=== PATIENT | female | born 1940 | race Caucasian/White ===

== ENCOUNTER 2022-09-05 08:16 | Inpatient (IN) | payer BC, MEDICAID ==
[~2022-09-05] VITALS: Ht 154.9 cm; Wt 50.8 kg
[2022-09-05 08:30] VITALS: BP_SYST 169
[2022-09-05] MEDS ORDERED: DEXAMETHASONE SOD PHOSPHATE 4 MG/ML VIAL IVP ONE (09:00)
--- NOTE | 2022-09-05 09:00 | NUR ---
PATIENT BIBA PLACE IN BED 8, C/O COUGHING AND POSITIVE COVID, PATIENT AAOX4 SPEECH CLEAR AND COHERENT, MOVE ALL EXTREMITIES, ON HEMODIALYSIS PATIENT CARE SPECIALIST, SEEN BY EDP WITH ORDER LEIGHA OUT.
[2022-09-05 09:25] LABS: BASOPHILS % (AUTO) 0.3 % (0.0-2.0); EOSINOPHILS # (AUTO) 0.2 K/uL (0.0-0.4); EOSINOPHILS % (AUTO) 1.2 % (0.0-4.0); HEMOGLOBIN 14.7 g/dL (12.0-16.0); LYMPHOCYTES # (AUTO) 1.9 K/uL (1.0-5.5); MEAN CORPUSCULAR HEMOGLOBIN 30 pg (27-31); MEAN CORPUSCULAR HGB CONC 33 % (32-36); MEAN CORPUSCULAR VOLUME 90 fL (79.0-98.0); MONOCYTES # (AUTO) 0.8 K/uL (0.0-1.0); MONOCYTES % (AUTO) 5.1 % (1.7-9.3); NEUTROPHILS # (AUTO) 13.1 K/uL (1.8-7.7); NEUTROPHILS % (AUTO) 81.4 % (40.0-70.0); PLATELET COUNT (AUTO) 297 K/uL (130-430); RED CELL DISTRIBUTION WIDTH 13.7 % (9.0-15.0); WHITE BLOOD COUNT (AUTO) 16.1 K/uL (4.8-10.8)
[2022-09-05 09:39] LABS: ANION GAP 11 (5-15); CALCIUM 9.1 mg/dL (8.4-11.0); CHLORIDE 101 mmol/L (98-107); CREATININE 0.73 mg/dL (0.55-1.30); GLUCOSE 166 mg/dL (70-99); UREA NITROGEN, BLOOD 9 mg/dL (8-21)
[2022-09-05 09:44] LABS: ALANINE AMINOTRANSFERASE 21 U/L (12-78); ALBUMIN 3.7 g/dL (3.4-4.8); ASPARTATE AMINOTRANSFERASE 18 U/L (10-37); C-REACTIVE PROTEIN QUANT 4.9 mg/dL (0-0.5); TOTAL BILIRUBIN 0.7 mg/dL (0.0-1.0)
--- NOTE | 2022-09-05 11:21 | NUR ---
covid and flu swab collected
--- NOTE | 2022-09-05 12:56 | NUR ---
ALL RESULT BACK EDP REASSESS PATIENT AND SPOKE TO FAMILY, AWAITING FOR DISPOSITION.
[2022-09-05] MEDS ORDERED: iohexoL 350 mgI/mL, 100 ML INFUS..BTL IV ONE (14:17)
--- NOTE | 2022-09-05 15:00 | NUR ---
PATIENT BACK ROM CT SCAN.
--- NOTE | 2022-09-05 16:03 | NUR ---
Admit bed requested Patient will be admitted to care of . Admitted to TELE unit. Diagnosis HYPOXIA Inpatient (Yes or No) YES Observation (Yes or No)NO Orientation concerns or request close to nursing station (Yes or No) NO Covid Status NEGATIVE On vent or bipap NO Isolation requirementsNO Needs a sitter NO From Home (Yes or if No enter name of facility) YES Requires Dialysis (Yes or No) NO Med Rec Completed (Yes of No) NO
[2022-09-05 16:24] VITALS: BP_SYST 133
--- NOTE | 2022-09-05 16:45 | NUR ---
Mani mclaughlinmichael in [facility] - 09/05/22 at 1712 by [id number] PATIENT REFUSES STRAIGHT CATH, WILL CONTINUE TO MONITOR
--- NOTE | 2022-09-05 16:48 | NUR ---
CONSULTS CALLED CALLED DR CORDON ORDERED BY DR PRINCE [phone] CUMMINS [phone]
--- NOTE | 2022-09-05 17:12 | NUR ---
patient taken to ct scan.
[2022-09-05 17:50] VITALS: BP_SYST 130
--- NOTE | 2022-09-05 18:18 | NUR ---
Patient will be admitted to care of [facility]. Admitted to TELE unit. Will go to room 134 A. Belongings list completed. Complete and up to date summary report printed. SBAR report to be given at bedside with opportunity for questions.
[2022-09-05] MEDS ORDERED: cefTRIAXone 1 GM in D5W 50 ML IV SCH (18:30)
[2022-09-05 18:47] VITALS: BP_SYST 130
[2022-09-05 19:57] VITALS: BP_SYST 138
[2022-09-05 20:00] VITALS: BP_SYST 116
[2022-09-05] MEDS: IPRATROPIUM/ALBUTEROL SULFATE 3 ML AMPUL.NEB (DUONEB) INH SCH ×2 (20:16→23:23)
[2022-09-05] MEDS ORDERED: AZITHROMYCIN 500 MG/VIAL (ZITHROMAX) IV ONE (22:10)
[2022-09-05] MEDS ORDERED: cefTRIAXone 1 GM IVPB PREMIX 50 ML IV ONE (22:10)
[2022-09-05] MEDS: AZITHROMYCIN 500 MG in NS 250 ML IV SCH (22:26)
[2022-09-06 00:56] VITALS: BP_SYST 110
[2022-09-06] MEDS: IPRATROPIUM/ALBUTEROL SULFATE 3 ML AMPUL.NEB (DUONEB) INH SCH ×6 (03:51→23:05)
[2022-09-06 04:00] VITALS: BP_SYST 104
[2022-09-06 06:41] LABS: BASOPHILS % (AUTO) 0.3 % (0.0-2.0); EOSINOPHILS # (AUTO) 0.2 K/uL (0.0-0.4); EOSINOPHILS % (AUTO) 1.3 % (0.0-4.0); HEMATOCRIT 39.3 % (36-48); HEMOGLOBIN 13.2 g/dL (12.0-16.0); LYMPHOCYTES # (AUTO) 3.1 K/uL (1.0-5.5); LYMPHOCYTES % (AUTO) 19.5 % (20.5-51.5); MEAN CORPUSCULAR HEMOGLOBIN 30 pg (27-31); MEAN CORPUSCULAR HGB CONC 34 % (32-36); MEAN CORPUSCULAR VOLUME 89 fL (79.0-98.0); MONOCYTES # (AUTO) 1.3 K/uL (0.0-1.0); MONOCYTES % (AUTO) 8.3 % (1.7-9.3); NEUTROPHILS # (AUTO) 11.1 K/uL (1.8-7.7); NEUTROPHILS % (AUTO) 70.6 % (40.0-70.0); PLATELET COUNT (AUTO) 304 K/uL (130-430); RED BLOOD CELL COUNT(AUTO) 4.43 MIL/uL (4.2-6.2); RED CELL DISTRIBUTION WIDTH 13.3 % (9.0-15.0); WHITE BLOOD COUNT (AUTO) 15.7 K/uL (4.8-10.8)
--- NOTE | 2022-09-06 07:03 | NUR ---
1900: Report received from out going nurse 1940: Pt seen in in room, VSS Stable, still awaiting MD's orders 0, administered pending ABX, respiratory at bedside . Dr Schmidt paged for cough. OK by covering doctor to give respiratory Meds 0000: pt in bed, asleep no Respiratory distress 0400 VSS, Telemetry monitoring ongoing, reading SR-ST. 0600 PT Resting in bed, REPORTS FEELING BETTER, ALREADY SPOKE TO FAMILY FROM [place]. No other distress noted
[2022-09-06 07:51] LABS: ALANINE AMINOTRANSFERASE 22 U/L (12-78); ALBUMIN 3.4 g/dL (3.4-4.8); ANION GAP 11 (5-15); ASPARTATE AMINOTRANSFERASE 14 U/L (10-37); CALCIUM 8.9 mg/dL (8.4-11.0); CHLORIDE 103 mmol/L (98-107); CREATININE 0.77 mg/dL (0.55-1.30); GLUCOSE 117 mg/dL (70-99); TOTAL BILIRUBIN 0.4 mg/dL (0.0-1.0); UREA NITROGEN, BLOOD 18 mg/dL (8-21)
[2022-09-06 09:17] VITALS: BP_SYST 119
[2022-09-06] MEDS ORDERED: DECADRON 4 MG TABLET PO SCH (11:00)
[2022-09-06] MEDS ORDERED: ENOXAPARIN SODIUM 30 MG/0.3 ML SYRINGE SUBCUT ONE (12:00)
[2022-09-06] MEDS ORDERED: METHYLPREDNISOLONE SOD SUCC 40 MG/ML VIAL IVP ONE (12:15)
[2022-09-06 12:40] VITALS: BP_SYST 119
[2022-09-06] MEDS ORDERED: CHOLECALCIFEROL (VITAMIN D3) 5,000 UNIT TABLET PO ONE (13:00)
[2022-09-06 16:50] VITALS: BP_SYST 109; BP_SYST 137
[2022-09-06] MEDS: AZITHROMYCIN 500 MG in NS 250 ML IV SCH (19:12)
[2022-09-06 20:00] VITALS: BP_SYST 128
[2022-09-06] MEDS ORDERED: ENOXAPARIN SODIUM 40 MG/0.4 ML SYRINGE SUBCUT SCH (21:00)
[2022-09-06] MEDS: METHYLPREDNISOLONE SOD SUCC 40 MG/ML VIAL IVP SCH (22:01)
[2022-09-07] MEDS: IPRATROPIUM/ALBUTEROL SULFATE 3 ML AMPUL.NEB (DUONEB) INH SCH ×7 (03:16→19:49)
[2022-09-07 08:33] VITALS: BP_SYST 115
[2022-09-07] MEDS: ASCORBIC ACID 500 MG TABLET PO SCH (08:36)
[2022-09-07] MEDS: CHOLECALCIFEROL (VITAMIN D3) 5,000 UNIT TABLET PO SCH (08:36)
[2022-09-07] MEDS: METHYLPREDNISOLONE SOD SUCC 40 MG/ML VIAL IVP SCH ×2 (08:37→21:28)
[2022-09-07] MEDS: ENOXAPARIN SODIUM 30 MG/0.3 ML SYRINGE SUBCUT SCH (08:37)
[2022-09-07] MEDS: AZITHROMYCIN 500 MG in NS 250 ML IV SCH (17:39)
[2022-09-07 20:00] VITALS: BP_SYST 135
[2022-09-08] VITALS: BP_SYST 133
[2022-09-08] MEDS: IPRATROPIUM/ALBUTEROL SULFATE 3 ML AMPUL.NEB (DUONEB) INH SCH ×5 (01:47→12:20)
[2022-09-08 04:00] VITALS: BP_SYST 138
[2022-09-08 07:12] LABS: BASOPHILS % (AUTO) 0.1 % (0.0-2.0); HEMOGLOBIN 12.7 g/dL (12.0-16.0); LYMPHOCYTES # (AUTO) 1.5 K/uL (1.0-5.5); LYMPHOCYTES % (AUTO) 8.4 % (20.5-51.5); MEAN CORPUSCULAR HEMOGLOBIN 30 pg (27-31); MEAN CORPUSCULAR HGB CONC 33 % (32-36); MEAN CORPUSCULAR VOLUME 90 fL (79.0-98.0); MONOCYTES # (AUTO) 0.8 K/uL (0.0-1.0); MONOCYTES % (AUTO) 4.5 % (1.7-9.3); PLATELET COUNT (AUTO) 324 K/uL (130-430); RED BLOOD CELL COUNT(AUTO) 4.25 MIL/uL (4.2-6.2); RED CELL DISTRIBUTION WIDTH 13.9 % (9.0-15.0); WHITE BLOOD COUNT (AUTO) 17.3 K/uL (4.8-10.8)
[2022-09-08 07:35] LABS: ANION GAP 9 (5-15); CALCIUM 8.9 mg/dL (8.4-11.0); CHLORIDE 105 mmol/L (98-107); CREATININE 0.81 mg/dL (0.55-1.30); GLUCOSE 127 mg/dL (70-99); UREA NITROGEN, BLOOD 23 mg/dL (8-21)
[2022-09-08 08:24] VITALS: BP_SYST 151
[2022-09-08] MEDS: ASCORBIC ACID 500 MG TABLET PO SCH (08:26)
[2022-09-08] MEDS: CHOLECALCIFEROL (VITAMIN D3) 5,000 UNIT TABLET PO SCH (08:27)
[2022-09-08] MEDS: METHYLPREDNISOLONE SOD SUCC 40 MG/ML VIAL IVP SCH (08:27)
[2022-09-08] MEDS: ENOXAPARIN SODIUM 30 MG/0.3 ML SYRINGE SUBCUT SCH (08:27)
[2022-09-08] MEDS ORDERED: IPRA3AMP9 INH (13:18)
[2022-09-08] MEDS ORDERED: PRED20TA PO (13:18)
[2022-09-08] MEDS ORDERED: ASC500 PO (13:18)
[2022-09-08 15:37] VITALS: BP_SYST 138
--- NOTE | 2022-09-08 17:02 | NUR ---
Patient dc home. DC instructions explained and given to the patient. PIV and tele box removed. Patient stated that she will follow up with pharmacy regarding her new medication instead of waiting on the doctor to fix the prescription problem. She left accompanied by the daughter.
[2022-09-10 10:07] LABS: IMMUNOGLOBULIN E,TOTAL 9 IU/mL (6-495)
[2022-09-10 23:07] LABS: MYCOPLASMA PNEUMONIAE IgM <770 U/mL (0-769)
[2022-09-11 21:06] LABS: LEGIONELLA PNEUMOPHILIA AB <0.91 OD ratio (0.00-0.90)
[2022-09-12 16:06] LABS: ASPERGILLUS FLAVUS Negative (Neg:<1:1); ASPERGILLUS FUMIGATUS Negative (Neg:<1:1)
== END 2022-09-08 16:40 | disposition home or self-care (01) | DRG 194 ==
LOC: SED 08:16 → STU 15:23
PROVIDERS: ADMIT Internal Medicine; ATTEND Internal Medicine
DX: J18.9 Pneumonia, unspecified organism (principal); R65.10 Systemic inflammatory response syndrome (SIRS) of non-infectious origin without acute organ dysfunction; F17.200 Nicotine dependence, unspecified, uncomplicated; J43.9 Emphysema, unspecified; Z20.822 Contact with and (suspected) exposure to COVID-19; Z90.710 Acquired absence of both cervix and uterus
CPT/HCPCS: 36415; 71045; 71275; 76376; 80048; 80053; 82785; 83605; 83880; 85025; 86140; 86606; 86713; 86738; 87040; 93005; 94640; 94760; 96374; 99285; G0378; J0456; J0696; J1030; J1100; J1650; J7050; J7060; Q9967